=== PATIENT | male | born 2000 | race Caucasian/White ===

== ENCOUNTER 2018-03-22 08:55 | Outpatient (CLI) | payer BC ==
[~2018-03-22] VITALS: Ht 181 cm; Wt 62.8 kg
== END 2018-03-22 10:55 | disposition home or self-care (01) ==
LOC: ECT 08:55
DX: F33.2 Major depressive disorder, recurrent severe without psychotic features (principal); R48.0 Dyslexia and alexia

== ENCOUNTER 2018-03-26 05:33 | Outpatient (RCR) | payer BC ==
[~2018-03-26] VITALS: Ht 181 cm; Wt 62.6 kg
[2018-03-26] MEDS ORDERED: Succinylcholine 20mg/ml 10ml vial ONE ×2 (05:34)
[2018-03-26] MEDS ORDERED: Methohexital Sodium Syr 100mg/10ml IVP ONE ×2 (05:34)
[2018-03-26] MEDS ORDERED: Midazolam 2mg/2ml Inj ONE (05:34)
[2018-03-26] MEDS ORDERED: NS 500ML ONE ×2 (05:34)
[2018-03-26] MEDS ORDERED: Ketorolac 60mg Inj IM ONE (05:34)
[2018-03-26 08:52] VITALS: BP 113/62
[2018-03-26] MEDS ORDERED: Sodium Chloride 500ML 500 ML IV ONE (09:09)
[2018-03-26 09:10] VITALS: BP 115/43
[2018-03-26 09:15] VITALS: BP 110/39
[2018-03-26 09:20] VITALS: BP 113/38
[2018-03-26 09:25] VITALS: BP 115/38
[2018-03-26 10:25] VITALS: BP 113/62
[2018-03-28] MEDS ORDERED: Succinylcholine 20mg/ml 10ml vial ONE (08:00)
[2018-03-28] MEDS ORDERED: NS 500ML ONE (08:00)
[2018-03-28] MEDS ORDERED: Methohexital Sodium Syr 100mg/10ml IVP ONE (08:00)
[2018-03-28] MEDS ORDERED: Ketorolac 30mg Inj ONE (08:00)
[2018-03-28] MEDS ORDERED: Midazolam 2mg/2ml Inj ONE (08:00)
[2018-03-28 08:42] VITALS: BP 123/66
[2018-03-28 08:55] VITALS: BP 128/53
[2018-03-28] MEDS ORDERED: Sodium Chloride 500ML 500 ML IV ONE (08:55)
[2018-03-28 09:00] VITALS: BP 137/58
[2018-03-28 09:05] VITALS: BP 133/58
[2018-03-28 09:10] VITALS: BP 128/72
[2018-04-02 08:00] VITALS: BP 113/63
[2018-04-02] MEDS ORDERED: Sodium Chloride 500ML 500 ML IV ONE (08:13)
[2018-04-02 08:15] VITALS: BP 113/47
[2018-04-02 08:20] VITALS: BP 115/60
[2018-04-02 08:25] VITALS: BP 115/60
[2018-04-02 08:30] VITALS: BP 111/64
[2018-04-02] MEDS ORDERED: Succinylcholine 20mg/ml 10ml vial ONE (14:53)
[2018-04-02] MEDS ORDERED: Ketorolac 60mg Inj IM ONE (14:53)
[2018-04-02] MEDS ORDERED: NS 500ML ONE (14:53)
[2018-04-02] MEDS ORDERED: Methohexital Sodium Syr 100mg/10ml IVP ONE (14:53)
[2018-04-02] MEDS ORDERED: Midazolam 2mg/2ml Inj ONE (14:53)
[2018-04-04 08:24] VITALS: BP 120/64
[2018-04-04] MEDS ORDERED: Sodium Chloride 500ML 500 ML IV ONE (08:36)
[2018-04-04 08:40] VITALS: BP 129/68
[2018-04-04 08:45] VITALS: BP 119/50
[2018-04-04 08:50] VITALS: BP 128/52
[2018-04-04 08:55] VITALS: BP 120/56
[2018-04-06 07:57] VITALS: BP 112/62
[2018-04-06] MEDS ORDERED: Sodium Chloride 500ML 500 ML IV ONE (08:13)
[2018-04-06 08:15] VITALS: BP 123/53
[2018-04-06 08:20] VITALS: BP 120/52
[2018-04-06 08:25] VITALS: BP 118/57
[2018-04-06 08:30] VITALS: BP 122/61
[2018-04-06] MEDS ORDERED: NS 500ML ONE (12:01)
[2018-04-06] MEDS ORDERED: Succinylcholine 20mg/ml 10ml vial ONE (12:01)
[2018-04-06] MEDS ORDERED: Ketorolac 60mg Inj IM ONE (12:01)
[2018-04-06] MEDS ORDERED: Midazolam 2mg/2ml Inj ONE (12:01)
[2018-04-06] MEDS ORDERED: Methohexital Sodium Syr 100mg/10ml IVP ONE (12:01)
== END 2018-04-06 | disposition home or self-care (01) ==
LOC: ECT 05:33
DX: F33.2 Major depressive disorder, recurrent severe without psychotic features (principal)
CPT/HCPCS: 90870; J0330; J1885; J2250; J7040

== ENCOUNTER 2018-04-09 04:39 | Outpatient (RCR) | payer BC ==
[~2018-04-09] VITALS: Ht 181 cm; Wt 62.6 kg
[2018-04-09] MEDS ORDERED: Ketamine HCl 100mg syr ONE (04:40)
[2018-04-09] MEDS ORDERED: Methohexital Sodium Syr 100mg/10ml IVP ONE (04:40)
[2018-04-09] MEDS ORDERED: Succinylcholine 20mg/ml 10ml vial ONE ×2 (04:40)
[2018-04-09] MEDS ORDERED: Midazolam 2mg/2ml Inj ONE ×2 (04:40)
[2018-04-09] MEDS ORDERED: Ketorolac 60mg Inj IM ONE ×2 (04:40)
[2018-04-09] MEDS ORDERED: NS 500ML ONE ×2 (04:40)
[2018-04-09 08:25] VITALS: BP 114/67
[2018-04-09] MEDS ORDERED: Sodium Chloride 500ML 500 ML IV ONE (08:48)
[2018-04-09] MEDS ORDERED: Atropine Sulfate 0.4mg/ml inj IVP PRN (08:48)
[2018-04-09 08:50] VITALS: BP 125/50
[2018-04-09 08:55] VITALS: BP 120/47
[2018-04-09 09:00] VITALS: BP 114/45
[2018-04-09 09:05] VITALS: BP 111/50
[2018-04-11] MEDS ORDERED: Midazolam 2mg/2ml Inj ONE (08:00)
[2018-04-11] MEDS ORDERED: NS 500ML ONE (08:00)
[2018-04-11] MEDS ORDERED: Succinylcholine 20mg/ml 10ml vial ONE (08:00)
[2018-04-11] MEDS ORDERED: Ketorolac 60mg Inj IM ONE (08:00)
[2018-04-11] MEDS ORDERED: Methohexital Sodium Syr 100mg/10ml IVP ONE (08:00)
[2018-04-11 08:43] VITALS: BP 116/65
[2018-04-11 09:00] VITALS: BP 112/43
[2018-04-11 09:05] VITALS: BP 115/44
[2018-04-11 09:10] VITALS: BP 114/44
[2018-04-11 09:15] VITALS: BP 106/44
[2018-04-11] MEDS ORDERED: Sodium Chloride 500ML 500 ML IV ONE (14:30)
[2018-04-13] MEDS ORDERED: Midazolam 2mg/2ml Inj ONE (08:00)
[2018-04-13] MEDS ORDERED: Succinylcholine 20mg/ml 10ml vial ONE (08:00)
[2018-04-13] MEDS ORDERED: Ketorolac 60mg Inj IM ONE (08:00)
[2018-04-13] MEDS ORDERED: Methohexital Sodium Syr 100mg/10ml IVP ONE (08:00)
[2018-04-13] MEDS ORDERED: NS 500ML ONE (08:00)
[2018-04-13 08:01] VITALS: BP 122/76
[2018-04-13] MEDS ORDERED: Sodium Chloride 500ML 500 ML IV ONE ×2 (08:13)
[2018-04-13 08:15] VITALS: BP 118/59
[2018-04-13 08:20] VITALS: BP 112/55
[2018-04-13 08:25] VITALS: BP 127/63
[2018-04-13 08:30] VITALS: BP 124/67
[2018-04-16] MEDS ORDERED: Succinylcholine 20mg/ml 10ml vial ONE (07:00)
[2018-04-16] MEDS ORDERED: NS 500ML ONE (07:00)
[2018-04-16] MEDS ORDERED: Midazolam 2mg/2ml Inj ONE (07:00)
[2018-04-16] MEDS ORDERED: Ketamine 500mg Inj ONE (07:00)
[2018-04-16] MEDS ORDERED: Ketorolac 60mg Inj IM ONE (07:00)
[2018-04-16 09:54] VITALS: BP 119/68
[2018-04-16] MEDS ORDERED: Sodium Chloride 500ML 500 ML IV ONE (10:06)
[2018-04-16 10:10] VITALS: BP 133/51
[2018-04-16 10:15] VITALS: BP 136/61
[2018-04-16 10:20] VITALS: BP 123/47
[2018-04-16 10:25] VITALS: BP 127/52
[2018-04-18] MEDS ORDERED: Succinylcholine 20mg/ml 10ml vial ONE (08:00)
[2018-04-18] MEDS ORDERED: Ketorolac 60mg Inj IM ONE (08:00)
[2018-04-18] MEDS ORDERED: NS 500ML ONE (08:00)
[2018-04-18] MEDS ORDERED: Ketamine HCl 100mg syr ONE (08:00)
[2018-04-18 08:48] VITALS: BP 118/65
[2018-04-18 09:05] VITALS: BP 134/62
[2018-04-18] MEDS ORDERED: Sodium Chloride 500ML 500 ML IV ONE (09:05)
[2018-04-18 09:10] VITALS: BP 134/70
[2018-04-18 09:15] VITALS: BP 140/61
[2018-04-18 09:20] VITALS: BP 131/63
[2018-04-20 07:55] VITALS: BP 123/69
[2018-04-20] MEDS ORDERED: Sodium Chloride 500ML 500 ML IV ONE (08:07)
[2018-04-20 08:10] VITALS: BP 148/82
[2018-04-20 08:15] VITALS: BP 143/79
[2018-04-20 08:20] VITALS: BP 141/73
[2018-04-20 08:25] VITALS: BP 141/82
[2018-04-23] MEDS ORDERED: Ketorolac 60mg Inj IM ONE (08:00)
[2018-04-23] MEDS ORDERED: Succinylcholine 20mg/ml 10ml vial ONE (08:00)
[2018-04-23] MEDS ORDERED: NS 500ML ONE (08:00)
[2018-04-23] MEDS ORDERED: Midazolam 2mg/2ml Inj ONE (08:00)
[2018-04-23] MEDS ORDERED: Ketamine HCl 100mg syr ONE (08:00)
[2018-04-23 08:34] VITALS: BP 120/62
[2018-04-23] MEDS ORDERED: Sodium Chloride 500ML 500 ML IV ONE (08:46)
[2018-04-23 08:50] VITALS: BP 123/54
[2018-04-23 08:55] VITALS: BP 137/81
[2018-04-23 09:00] VITALS: BP 137/54
[2018-04-23 09:05] VITALS: BP 128/48
[2018-04-25] MEDS ORDERED: Ketorolac 60mg Inj IM ONE (07:00)
[2018-04-25] MEDS ORDERED: Succinylcholine 20mg/ml 10ml vial ONE (07:00)
[2018-04-25] MEDS ORDERED: NS 500ML ONE (07:00)
[2018-04-25] MEDS ORDERED: Ketamine 500mg Inj ONE (07:00)
[2018-04-25] MEDS ORDERED: Midazolam 2mg/2ml Inj ONE (07:00)
[2018-04-25 07:14] VITALS: BP 124/73
[2018-04-25] MEDS ORDERED: Sodium Chloride 500ML 500 ML IV ONE (07:28)
[2018-04-25 07:30] VITALS: BP 151/81
[2018-04-25 07:35] VITALS: BP 151/81
[2018-04-25 07:40] VITALS: BP 143/73
[2018-04-25 07:45] VITALS: BP 136/98
[2018-04-27] MEDS ORDERED: Succinylcholine 20mg/ml 10ml vial ONE (06:00)
[2018-04-27] MEDS ORDERED: Midazolam 2mg/2ml Inj ONE (06:00)
[2018-04-27] MEDS ORDERED: Ketorolac 60mg Inj IM ONE (06:00)
[2018-04-27] MEDS ORDERED: Ketamine 500mg Inj ONE (06:00)
[2018-04-27] MEDS ORDERED: NS 500ML ONE (06:00)
[2018-04-27 08:11] VITALS: BP 119/64
[2018-04-27] MEDS ORDERED: Sodium Chloride 500ML 500 ML IV ONE (08:23)
[2018-04-27 08:25] VITALS: BP 145/83
[2018-04-27 08:30] VITALS: BP 138/75
[2018-04-27 08:35] VITALS: BP 130/70
[2018-04-27 08:40] VITALS: BP 116/47
[2018-05-02 07:05] VITALS: BP 124/74
[2018-05-02] MEDS ORDERED: Sodium Chloride 500ML 500 ML IV ONE (07:17)
[2018-05-02 07:20] VITALS: BP 147/63
[2018-05-02 07:25] VITALS: BP 135/52
[2018-05-02 07:30] VITALS: BP 129/42
[2018-05-02 07:35] VITALS: BP 124/43
[2018-05-07 07:48] VITALS: BP 113/61
[2018-05-07] MEDS ORDERED: Sodium Chloride 500ML 500 ML IV ONE (08:02)
[2018-05-07 08:05] VITALS: BP 122/53
[2018-05-07 08:10] VITALS: BP 130/64
[2018-05-07 08:15] VITALS: BP 124/47
[2018-05-07 08:20] VITALS: BP 118/49
[2018-05-07] MEDS ORDERED: Ketamine 500mg Inj ONE (14:26)
[2018-05-07] MEDS ORDERED: NS 500ML ONE (14:26)
[2018-05-07] MEDS ORDERED: Ketorolac 60mg Inj IM ONE (14:26)
[2018-05-07] MEDS ORDERED: Midazolam 2mg/2ml Inj ONE (14:26)
[2018-05-07] MEDS ORDERED: Succinylcholine 20mg/ml 10ml vial ONE (14:26)
== END 2018-05-07 | disposition home or self-care (01) ==
LOC: ECT 04:39
DX: F33.2 Major depressive disorder, recurrent severe without psychotic features (principal)
CPT/HCPCS: 90870; J0330; J2250; J3360; J3490; J7040

== ENCOUNTER 2018-05-14 09:15 | Outpatient (RCR) | payer BC, MEDICARE ==
[~2018-05-14] VITALS: Ht 181 cm; Wt 62.8 kg
[2018-05-14 08:52] VITALS: BP 123/71
[2018-05-14 09:05] VITALS: BP 133/56
[2018-05-14 09:10] VITALS: BP 117/49
[2018-05-14 09:15] VITALS: BP 122/60
[2018-05-14] MEDS ORDERED: Methohexital Sodium 500mg Vial IVP ONE (09:16)
[2018-05-14] MEDS ORDERED: Succinylcholine 20mg/ml 10ml vial ONE ×2 (09:16)
[2018-05-14] MEDS ORDERED: NS 500ML ONE ×2 (09:16)
[2018-05-14] MEDS ORDERED: Ketorolac 60mg Inj IM ONE ×2 (09:16)
[2018-05-14] MEDS ORDERED: Midazolam 2mg/2ml Inj ONE ×2 (09:16)
[2018-05-14] MEDS ORDERED: Methohexital Sodium Syr 100mg/10ml IVP ONE (09:16)
[2018-05-14 09:20] VITALS: BP 121/51
[2018-05-21] MEDS ORDERED: Methohexital Sodium Syr 100mg/10ml IVP ONE (07:00)
[2018-05-21] MEDS ORDERED: NS 500ML ONE (07:00)
[2018-05-21] MEDS ORDERED: Succinylcholine 20mg/ml 10ml vial ONE (07:00)
[2018-05-21] MEDS ORDERED: Midazolam 2mg/2ml Inj ONE (07:00)
[2018-05-21] MEDS ORDERED: Ketorolac 60mg Inj IM ONE (07:00)
[2018-05-21 08:41] VITALS: BP 126/75
[2018-05-21 09:00] VITALS: BP 121/61
[2018-05-21 09:05] VITALS: BP 119/49
[2018-05-21 09:10] VITALS: BP 126/47
[2018-05-21 09:15] VITALS: BP 126/62
[2018-06-04 07:31] VITALS: BP 137/82
[2018-06-04 07:50] VITALS: BP 142/53
[2018-06-04 07:55] VITALS: BP 136/60
[2018-06-04 08:00] VITALS: BP 124/50
[2018-06-04 08:05] VITALS: BP 132/49
== END 2018-06-07 | disposition home or self-care (01) ==
LOC: ECT 09:15
DX: F33.2 Major depressive disorder, recurrent severe without psychotic features (principal); R48.0 Dyslexia and alexia
CPT/HCPCS: 90870; J0330; J2250; J3490; J7040

== ENCOUNTER 2018-06-25 06:06 | Outpatient (RCR) | payer BC ==
[~2018-06-25] VITALS: Ht 30.5 cm; Wt 0.5 kg
[2018-06-25] MEDS ORDERED: Methohexital Sodium Syr 100mg/10ml IVP ONE (06:07)
[2018-06-25] MEDS ORDERED: NS 500ML ONE (06:07)
[2018-06-25] MEDS ORDERED: Ketorolac 60mg Inj IM ONE (06:07)
[2018-06-25] MEDS ORDERED: Midazolam 2mg/2ml Inj ONE (06:07)
[2018-06-25] MEDS ORDERED: Succinylcholine 20mg/ml 10ml vial ONE (06:07)
[2018-06-25 08:15] VITALS: BP 136/81
[2018-06-25 08:30] VITALS: BP 125/55
[2018-06-25 08:35] VITALS: BP 127/59
[2018-06-25 08:40] VITALS: BP 120/50
[2018-06-25 08:45] VITALS: BP 116/54
== END 2018-07-05 | disposition home or self-care (01) ==
LOC: ECT 06:06
DX: F33.2 Major depressive disorder, recurrent severe without psychotic features (principal)
CPT/HCPCS: 90870; J0330; J2250; J7040

== ENCOUNTER 2018-07-06 05:00 | Outpatient (RCR) | payer BC ==
[~2018-07-06] VITALS: Ht 181 cm; Wt 62.8 kg
[2018-07-06] MEDS ORDERED: Midazolam 2mg/2ml Inj ONE ×3 (05:01)
[2018-07-06] MEDS ORDERED: Methohexital Sodium 500mg Vial IVP ONE ×2 (05:01)
[2018-07-06] MEDS ORDERED: Succinylcholine 20mg/ml 10ml vial ONE ×4 (05:01)
[2018-07-06] MEDS ORDERED: Methohexital Sodium Syr 100mg/10ml IVP ONE (05:01)
[2018-07-06] MEDS ORDERED: Ketorolac 60mg Inj IM ONE ×3 (05:01)
[2018-07-06] MEDS ORDERED: NS 500ML ONE ×3 (05:01)
[2018-07-06 08:16] VITALS: BP 119/70
[2018-07-06 08:30] VITALS: BP 127/68
[2018-07-06 08:35] VITALS: BP 117/73
[2018-07-06 08:40] VITALS: BP 117/64
[2018-07-06 08:45] VITALS: BP 119/58
[2018-07-09 07:17] VITALS: BP 120/75
[2018-07-09 07:35] VITALS: BP 132/49
[2018-07-09 07:40] VITALS: BP 130/59
[2018-07-09 07:45] VITALS: BP 126/62
[2018-07-09 07:50] VITALS: BP 120/53
[2018-07-09] MEDS ORDERED: Midazolam 2mg/2ml Inj ONE (08:00)
[2018-07-09] MEDS ORDERED: Succinylcholine 20mg/ml 10ml vial ONE (08:00)
[2018-07-09] MEDS ORDERED: Ketorolac 60mg Inj IM ONE (08:00)
[2018-07-09] MEDS ORDERED: Methohexital Sodium Syr 100mg/10ml IVP ONE (08:00)
[2018-07-09] MEDS ORDERED: NS 500ML ONE (08:00)
[2018-07-13 08:18] VITALS: BP 125/78
[2018-07-13 08:30] VITALS: BP 121/57
[2018-07-13 08:35] VITALS: BP 125/55
[2018-07-13 08:40] VITALS: BP 118/55
[2018-07-13 08:45] VITALS: BP 119/63
[2018-07-13 08:50] VITALS: BP 120/50
[2018-07-16] MEDS ORDERED: NS 500ML ONE (07:00)
[2018-07-16] MEDS ORDERED: Succinylcholine 20mg/ml 10ml vial ONE (07:00)
[2018-07-16] MEDS ORDERED: Ketorolac 60mg Inj IM ONE (07:00)
[2018-07-16] MEDS ORDERED: Midazolam 2mg/2ml Inj ONE (07:00)
[2018-07-16] MEDS ORDERED: Methohexital Sodium Syr 100mg/10ml IVP ONE (07:00)
[2018-07-16 09:43] VITALS: BP 124/70
[2018-07-16 10:00] VITALS: BP 119/54
[2018-07-16 10:05] VITALS: BP 117/47
[2018-07-16 10:10] VITALS: BP 113/46
[2018-07-16 10:15] VITALS: BP 128/66
[2018-07-20] MEDS ORDERED: Midazolam 2mg/2ml Inj ONE (07:00)
[2018-07-20] MEDS ORDERED: Succinylcholine 20mg/ml 10ml vial ONE (07:00)
[2018-07-20] MEDS ORDERED: Methohexital Sodium Syr 100mg/10ml IVP ONE (07:00)
[2018-07-20] MEDS ORDERED: Ketorolac 60mg Inj IM ONE (07:00)
[2018-07-20] MEDS ORDERED: NS 500ML ONE (07:00)
[2018-07-20 08:08] VITALS: BP 118/84
[2018-07-20 08:25] VITALS: BP 119/52
[2018-07-20 08:30] VITALS: BP 104/44
[2018-07-20 08:35] VITALS: BP 104/44
[2018-07-20 08:40] VITALS: BP 125/76
[2018-07-23] MEDS ORDERED: Methohexital Sodium Syr 100mg/10ml IVP ONE (07:00)
[2018-07-23] MEDS ORDERED: Succinylcholine 20mg/ml 10ml vial ONE (07:00)
[2018-07-23] MEDS ORDERED: Midazolam 2mg/2ml Inj ONE (07:00)
[2018-07-23] MEDS ORDERED: Ketorolac 60mg Inj IM ONE (07:00)
[2018-07-23] MEDS ORDERED: NS 500ML ONE (07:00)
[2018-07-23 08:07] VITALS: BP 120/65
[2018-07-23 08:25] VITALS: BP 107/45
[2018-07-23 08:30] VITALS: BP 124/49
[2018-07-23 08:35] VITALS: BP 115/42
[2018-07-23 08:40] VITALS: BP 109/51
[2018-07-27 07:46] VITALS: BP 129/78
[2018-07-27 08:00] VITALS: BP 129/57
[2018-07-27 08:05] VITALS: BP 119/51
[2018-07-27 08:10] VITALS: BP 116/51
[2018-07-27 08:15] VITALS: BP 115/49
[2018-07-30] MEDS ORDERED: NS 500ML ONE (06:00)
[2018-07-30] MEDS ORDERED: Ketorolac 60mg Inj IM ONE (06:00)
[2018-07-30] MEDS ORDERED: Methohexital Sodium Syr 100mg/10ml IVP ONE (06:00)
[2018-07-30] MEDS ORDERED: Succinylcholine 20mg/ml 10ml vial ONE (06:00)
[2018-07-30] MEDS ORDERED: Midazolam 2mg/2ml Inj ONE (06:00)
[2018-07-30 07:06] VITALS: BP 120/75
[2018-07-30] MEDS ORDERED: Atropine Sulfate 0.4mg/ml inj IVP PRN (07:28)
[2018-07-30 07:30] VITALS: BP 109/45
[2018-07-30 07:35] VITALS: BP 108/50
[2018-07-30 07:40] VITALS: BP 110/50
[2018-07-30 07:45] VITALS: BP 100/57
[2018-08-03] MEDS ORDERED: Midazolam 2mg/2ml Inj ONE (07:00)
[2018-08-03] MEDS ORDERED: NS 500ML ONE (07:00)
[2018-08-03] MEDS ORDERED: Methohexital Sodium Syr 100mg/10ml IVP ONE (07:00)
[2018-08-03] MEDS ORDERED: Succinylcholine 20mg/ml 10ml vial ONE (07:00)
[2018-08-03] MEDS ORDERED: Ketorolac 60mg Inj IM ONE (07:00)
[2018-08-03 08:19] VITALS: BP 131/76
[2018-08-03] MEDS ORDERED: Atropine Sulfate 0.4mg/ml inj IVP PRN (08:37)
[2018-08-03 08:40] VITALS: BP 129/45
[2018-08-03 08:45] VITALS: BP 119/44
[2018-08-03 08:50] VITALS: BP 120/52
[2018-08-03 08:55] VITALS: BP 116/47
== END 2018-08-05 | disposition home or self-care (01) ==
LOC: ECT 05:00
DX: F33.2 Major depressive disorder, recurrent severe without psychotic features (principal)
CPT/HCPCS: 90870; J0330; J2250; J3490; J7040

== ENCOUNTER 2018-08-06 06:09 | Outpatient (RCR) | payer BC ==
[~2018-08-06] VITALS: Ht 180.3 cm; Wt 62.6 kg
[2018-08-06] MEDS ORDERED: Ketorolac 60mg Inj IM ONE (06:10)
[2018-08-06] MEDS ORDERED: Succinylcholine 20mg/ml 10ml vial ONE (06:10)
[2018-08-06] MEDS ORDERED: NS 500ML ONE (06:10)
[2018-08-06] MEDS ORDERED: Methohexital Sodium Syr 100mg/10ml IVP ONE (06:10)
[2018-08-06] MEDS ORDERED: Midazolam 2mg/2ml Inj ONE (06:10)
[2018-08-06 07:28] VITALS: BP 122/70
[2018-08-06 07:50] VITALS: BP 143/70
[2018-08-06 07:55] VITALS: BP 117/49
[2018-08-06 08:00] VITALS: BP 119/58
[2018-08-06 08:05] VITALS: BP 115/54
[2018-08-10 07:44] VITALS: BP 123/75
[2018-08-10 08:00] VITALS: BP 117/68
[2018-08-10] MEDS ORDERED: Succinylcholine 20mg/ml 10ml vial ONE (08:00)
[2018-08-10] MEDS ORDERED: Methohexital Sodium Syr 100mg/10ml IVP ONE (08:00)
[2018-08-10] MEDS ORDERED: Ketorolac 60mg Inj IM ONE (08:00)
[2018-08-10] MEDS ORDERED: NS 500ML ONE (08:00)
[2018-08-10] MEDS ORDERED: Midazolam 2mg/2ml Inj ONE (08:00)
[2018-08-10 08:05] VITALS: BP 114/51
[2018-08-10 08:10] VITALS: BP 114/50
[2018-08-10 08:15] VITALS: BP 114/59
[2018-08-17] MEDS ORDERED: Methohexital Sodium Syr 100mg/10ml IVP ONE (06:00)
[2018-08-17] MEDS ORDERED: Midazolam 2mg/2ml Inj ONE (06:00)
[2018-08-17] MEDS ORDERED: Ketorolac 60mg Inj IM ONE (06:00)
[2018-08-17] MEDS ORDERED: NS 500ML ONE (06:00)
[2018-08-17] MEDS ORDERED: Succinylcholine 20mg/ml 10ml vial ONE (06:00)
[2018-08-17 08:30] VITALS: BP 124/79
[2018-08-17 08:50] VITALS: BP 114/46
[2018-08-17 08:55] VITALS: BP 114/51
[2018-08-17 09:00] VITALS: BP 117/48
[2018-08-17 09:05] VITALS: BP 113/40
== END 2018-09-04 | disposition home or self-care (01) ==
LOC: ECT 06:09
DX: F33.2 Major depressive disorder, recurrent severe without psychotic features (principal)
CPT/HCPCS: 90870; J0330; J2250; J7040